=== PATIENT | female | born 1955 | race Caucasian/White ===

== ENCOUNTER 2020-10-26 11:33 | Outpatient (REF) | payer OTHER, SELFPAY ==
[2020-10-26 14:27] LABS: Basophils Percent Auto 0.6 % (0-2); Eosinophils Absolute Auto 0.2 X10*3/uL (0.0-0.4); Eosinophils Percent Auto 3.6 % (0-4); Hematocrit 45.3 % (37-47); Hemoglobin 15.1 g/dl (12.0-16.0); Imm Gran Abs Auto 0.01 X10*3/uL (0.00-0.03); Imm Gran Pct Auto 0.2 % (0.0-0.4); Lymphocytes Percent Auto 21.8 % (20-40); MANUAL DIFF FLAG SCAN; Mean Corpuscular HGB Conc 33.3 g/dl (31.0-35.0); Mean Corpuscular Hemoglobin 32.4 pg (27.0-33.0); Mean Corpuscular Volume 97.2 fL (80-98); Mean Platelet Volume 10.6 fL (9.4-12.3); Monocytes Percent Auto 20.3 % (2-11); Neutrophils Absolute Auto 2.5 X10*3/uL (2.0-8.3); Neutrophils Percent Auto 53.5 % (45-73); Platelet Count 229 X10*3/uL (160-400); Red Blood Count 4.66 X10*6/uL (4.20-5.50); Red Cell Distribution Width 11.4 % (11.0-16.0); SCAN SMEAR FLAG 1; White Blood Count 4.7 X10*3/uL (4.8-10.8)
[2020-10-26 14:57] LABS: SLIDE REVIEW VERIFIED
[2020-10-26 14:59] LABS: Cholesterol 233 mg/dL; HDL Cholesterol 104 mg/dL; LDL Cholesterol Calculated 114 mg/dl; Triglycerides 76 mg/dL
[2020-10-26 15:04] LABS: Vitamin D 25-OH Total 36.2 ng/mL (>30)
== END 2020-10-26 11:34 | disposition home or self-care (01) ==
LOC: HO.10HDL 11:33
PROVIDERS: Visit Provider Internal Medicine Medical Oncology
DX: R63.6 Underweight (principal)
CPT/HCPCS: 36415; 80061; 82306; 85025

== ENCOUNTER 2021-07-13 10:49 | Outpatient (REF) | payer OTHER, SELFPAY ==
[2021-07-13 13:27] LABS: MANUAL DIFF FLAG NO
[2021-07-13 13:34] LABS: Basophils Percent Auto 0.8 % (0-2); Eosinophils Absolute Auto 0.1 X10*3/uL (0.0-0.4); Eosinophils Percent Auto 2.7 % (0-4); Imm Gran Abs Auto 0.01 X10*3/uL (0.00-0.03); Imm Gran Pct Auto 0.2 % (0.0-0.4); Lymphocytes Absolute Auto 1.1 X10*3/uL (1.2-4.9); Lymphocytes Percent Auto 21.6 % (20-40); Mean Corpuscular HGB Conc 33.3 g/dl (31.0-35.0); Mean Corpuscular Hemoglobin 32.3 pg (27.0-33.0); Mean Platelet Volume 10.8 fL (9.4-12.3); Monocytes Percent Auto 19.6 % (2-11); Neutrophils Absolute Auto 2.7 X10*3/uL (2.0-8.3); Neutrophils Percent Auto 55.1 % (45-73); Platelet Count 272 X10*3/uL (160-400); Red Blood Count 4.64 X10*6/uL (4.20-5.50); Red Cell Distribution Width 11.7 % (11.0-16.0); White Blood Count 4.9 X10*3/uL (4.8-10.8)
[2021-07-13 14:57] LABS: Alanine Aminotransferase 36 U/L (0-31); Albumin Level 4.2 g/dL (3.5-5.0); Alkaline Phosphatase 93 U/L (39-117); Anion Gap 15 (12-20); Aspartate Amino Transferase 37 U/L (5-31); Bilirubin Total 0.7 mg/dL (0.0-1.0); Blood Urea Nitrogen 8 mg/dL (9-16); Calcium 9.5 mg/dL (8.4-10.2); Carbon Dioxide 22 mmol/L (22-29); Chloride 102 mmol/L (96-108); Cholesterol 224 mg/dL; Estimated Glomerular Filt Rate > 60; Glucose Fasting 124 mg/dL (60-99); HDL Cholesterol 112 mg/dL; LDL Cholesterol Calculated 99 mg/dl; Potassium 4.3 mmol/L (3.3-5.1); Sodium 135 mmol/L (135-145); Total Protein 7.2 g/dL (6.5-8.0); Triglycerides 65 mg/dL
== END 2021-07-13 10:50 | disposition home or self-care (01) ==
LOC: HO.10HDL 10:49
PROVIDERS: Visit Provider Internal Medicine Medical Oncology
DX: E66.3 Overweight (principal)
CPT/HCPCS: 36415; 80053; 80061; 85025

== ENCOUNTER 2021-09-27 13:19 | Outpatient (REF) | payer OTHER, SELFPAY ==
--- NOTE | ~2021-09-27 | XR_ITS ---
EXAMINATION: XR CHEST CLINICAL INFORMATION: Cough, chest pain. COMPARISON 03/14/2013 TECHNIQUE: 2 views of the chest were obtained. FINDINGS: There is no acute finding. No infiltrate is seen. There is no effusion. Probable mild apical scarring. The cardiac silhouette is felt to be within normal limits. There is no effusion. Mild degeneration in the thoracic spine. No acute compression injury. The hilar regions are felt to be comparable to previous. No convincing evidence for increase. XR/XR chest 2V IMPRESSION: No convincing evidence for an acute process.
== END 2021-09-27 13:20 | disposition home or self-care (01) ==
LOC: HO.XRAY 13:19
PROVIDERS: PCP Internal Medicine Medical Oncology; Visit Provider Internal Medicine Medical Oncology
DX: R05.9 Cough, unspecified (principal); R07.9 Chest pain, unspecified; J44.9 Chronic obstructive pulmonary disease, unspecified
CPT/HCPCS: 71046

== ENCOUNTER 2022-08-01 11:26 | Outpatient (REF) | payer OTHER, SELFPAY ==
--- NOTE | ~2022-08-01 | XR_ITS ---
EXAMINATION: XR HIP, RIGHT CLINICAL INFORMATION: Primary osteoarthritis. COMPARISON: None TECHNIQUE: Two views of the right hip. FINDINGS: There is mild loss of right hip joint space with periarticular spurring. Mild irregularity seen along articulating surface of superior femoral head with subchondral hypodensity. No acute fracture, dislocation or subluxation seen. There is diffuse osteopenia. XR/XR hip RT min 2V IMPRESSION: Mild degenerative arthritic changes right hip joint. Irregular articular surface superior femoral head with mild subchondral lucencies question severe osteopenia versus underlying AVN. Recommend MRI correlation
[2022-08-01 12:38] LABS: Basophils Absolute Auto 0.1 X10*3/uL (0.0-0.2); Eosinophils Absolute Auto 0.1 X10*3/uL (0.0-0.4); Eosinophils Percent Auto 2.6 % (0-4); Hematocrit 40.1 % (37.0-47.0); Hemoglobin 13.5 g/dl (12.0-16.0); Imm Gran Abs Auto 0.02 X10*3/uL (0.00-0.03); Imm Gran Pct Auto 0.4 % (0.0-0.4); Lymphocytes Absolute Auto 1.2 X10*3/uL (1.2-4.9); Lymphocytes Percent Auto 24.6 % (20-40); MANUAL DIFF FLAG SCAN; Mean Corpuscular HGB Conc 33.7 g/dl (31.0-35.0); Mean Corpuscular Hemoglobin 32.3 pg (27.0-33.0); Mean Corpuscular Volume 95.9 fL (80.0-98.0); Monocytes Absolute Auto 1.1 X10*3/uL (0.1-1.2); Monocytes Percent Auto 21.4 % (2-11); Neutrophils Absolute Auto 2.5 x10*3/uL (2.0-8.3); Platelet Count 214 X10*3/uL (160-400); Red Blood Count 4.18 X10*6/uL (4.20-5.50); Red Cell Distribution Width 11.7 % (11.0-16.0); SCAN SMEAR FLAG 1
[2022-08-01 13:01] LABS: SLIDE REVIEW VERIFIED
[2022-08-01 13:16] LABS: Alanine Aminotransferase 26 U/L (0-31); Alkaline Phosphatase 75 U/L (39-117); Anion Gap 15 (12-20); Aspartate Amino Transferase 23 U/L (5-31); Bilirubin Total 0.5 mg/dL (0.0-1.0); Blood Urea Nitrogen 9 mg/dL (9-16); Calcium 8.8 mg/dL (8.4-10.2); Carbon Dioxide 24 mmol/L (22-29); Chloride 101 mmol/L (96-108); Cholesterol 247 mg/dL; Estimated Glomerular Filt Rate > 60; Glucose Fasting 98 mg/dL (60-99); HDL Cholesterol 104 mg/dL; LDL Cholesterol Calculated 129 mg/dl; Potassium 4.6 mmol/L (3.3-5.1); Sodium 135 mmol/L (135-145); Total Protein 6.6 g/dL (6.5-8.0); Triglycerides 71 mg/dL
== END 2022-08-01 11:27 | disposition home or self-care (01) ==
LOC: HO.LAB 11:26
PROVIDERS: PCP Internal Medicine Medical Oncology; Visit Provider Internal Medicine Medical Oncology
DX: M25.551 Pain in right hip (principal); J20.9 Acute bronchitis, unspecified; M15.0 Primary generalized (osteo)arthritis; J44.9 Chronic obstructive pulmonary disease, unspecified; R63.6 Underweight
CPT/HCPCS: 36415; 73502; 80053; 80061; 85025

== ENCOUNTER 2022-08-08 13:40 | Outpatient (REF) | payer OTHER, SELFPAY ==
--- NOTE | ~2022-08-08 | MM_ITS ---
EXAMINATION: MM SCREENING DIGITAL BREAST TOMOSYNTHESIS, BILATERAL CLINICAL INFORMATION: Screening. Asymptomatic. The lifetime risk of breast cancer based on the Tyrer-Cuzick Model is 4%. COMPARISON: Mammography: 10/07/2019; outside mammography 12/31/2012 ([facility]) TECHNIQUE: Digital breast tomosynthesis is performed in both the craniocaudal and mediolateral oblique views along with computer-aided detection (CAD). Synthesized 2D images are generated from the tomosynthesis. FINDINGS: There are scattered areas of fibroglandular density (ACR BI-RADS breast composition Category b). There are no significant masses, abnormal calcifications, or other abnormalities. Small smooth nodule central right breast on CC view is stable from prior studies. The axilla are unremarkable. There is a dermal lesion again noted overlying the posterior upper left breast. MM/MM tomosynthesis screening BI IMPRESSION: No mammographic evidence of malignancy. ASSESSMENT: BI-RADS 2: Benign RECOMMENDATION: Routine annual mammography screening. This patient's information was entered into a reminder system with a target due date for their next mammogram.
--- NOTE | ~2022-08-08 | MM_ITS ---
EXAMINATION: BONE DENSITOMETRY CLINICAL INDICATION: Menopause. COMPARISON: This is the patient's baseline examination. TECHNIQUE: Using a Sparrow DXA System (software version: 13.1) manufactured by [employer], dual-energy x-ray absorptiometry was performed of the lumbar spine and left hip. The images are of good technical quality. Summary results are attached. FINDINGS: AP SPINE L1-L4: BMD 0.935 g/cm2, Z-score 0.1, T-score -2.0, osteopenia. LEFT FEMUR, NECK: BMD 0.645 g/cm2, Z-score -0.9, T-score -2.8, osteoporosis. LEFT FEMUR, TOTAL: BMD 0.700 g/cm2, Z-score 0.7, T-score -2.4, osteopenia. IDENTIFIED RISK FACTORS: Menopause, history of fracture (adult), glucocorticoids (chronic). HISTORY OF FRACTURE: Spine, wrist. MEDICATIONS: Calcium, vitamin D. MM/XR DEXA axial skeleton IMPRESSION: 1. DIAGNOSIS: Osteoporosis based on the lowest T-score value of -2.8 in the femoral neck applying World Health Organization criteria. 2. 10-YEAR FRACTURE RISK PREDICTION, FRAX: Major osteoporotic fracture (clinical spine, forearm, hip or shoulder) 35.8%. Hip fracture 13.1%. 3. Treatment Recommendations: NOF guidelines recommend consideration for treatment in postmenopausal women and men age 50 and older presenting with the following: -A hip or vertebral (clinical or morphometric) fracture. -T-score less than or equal to -2.5 at the femoral neck or spine after appropriate evaluation to exclude secondary causes. -Low bone mass at the hip or spine and a 10-year fracture probability by FRAX of greater than or equal to 3% for hip fracture or greater than or equal to 20% for major osteoporotic fracture based on the [place] adapted WHO algorithm. 4. Other Recommendations: All treatment decisions require clinical judgment and consideration of individual patient factors, including patient preferences, comorbidities, previous drug use, risk factors not captured in the FRAX model (e.g. frailty, falls, vitamin D deficiency, increased bone turnover, interval significant decline in bone density) and possible under or overestimation of fracture risk by FRAX. Additional medical evaluation for secondary cause of low bone mineral density may be appropriate. FUTURE SCAN RECOMMENDATION: People with diagnosed cases of osteoporosis or at high risk for fracture should have regular bone mineral density tests. For patients eligible for Medicare, routine testing is allowed once every 2 years. The testing frequency can be increased to one year for patients who have rapidly progressing disease, those who are receiving or discontinuing medical therapy to restore bone mass, or have additional risk factors.
== END 2022-08-08 13:41 | disposition home or self-care (01) ==
LOC: HO.MAMMO 13:40
PROVIDERS: PCP Internal Medicine Medical Oncology; Visit Provider Internal Medicine Medical Oncology
DX: Z12.31 Encounter for screening mammogram for malignant neoplasm of breast (principal); Z13.820 Encounter for screening for osteoporosis; M81.0 Age-related osteoporosis without current pathological fracture; M15.0 Primary generalized (osteo)arthritis; R63.6 Underweight; Z78.0 Asymptomatic menopausal state
CPT/HCPCS: 77063; 77067; 77080

== ENCOUNTER 2022-08-13 12:35 | Outpatient (REF) | payer OTHER, SELFPAY ==
--- NOTE | ~2022-08-13 | XR_ITS ---
EXAMINATION: XR PELVIS CLINICAL INFORMATION: Right hip pain COMPARISON: 08/01/2022 TECHNIQUE: AP view of the pelvis. FINDINGS: Again demonstrated is a large subchondral cyst of the right femoral head with flattening of the overlying cortex, possibly due to chronic AVN with subchondral collapse. There is joint space narrowing, small marginal osteophytes and mild sclerosis. Relatively mild osteoarthritis of the left hip joint. Diffuse vascular calcifications. XR/XR pelvis 1-2V IMPRESSION: Right femoral head cyst and overlying surface flattening likely the sequela of chronic AVN with subchondral collapse, and secondary osteoarthritis. No significant change. Mild left hip osteoarthritis.
== END 2022-08-13 12:36 | disposition home or self-care (01) ==
LOC: HO.HOSX 12:35
PROVIDERS: Visit Provider Orthopaedic Surgery
DX: M25.551 Pain in right hip (principal); M25.552 Pain in left hip
CPT/HCPCS: 72170

== ENCOUNTER 2022-09-17 14:38 | Outpatient (REF) | payer OTHER, SELFPAY ==
--- NOTE | ~2022-09-17 | XR_ITS ---
EXAMINATION: XR LUMBOSACRAL SPINE WITH OBLIQUES CLINICAL INFORMATION: Pain. COMPARISON: None TECHNIQUE: AP, both oblique, and lateral views of the lumbar spine. Lateral view of the lumbosacral junction. FINDINGS: Age indeterminate compression deformities at L1, L2 and L4. Decreased bone mineralization. Mild disc space narrowing at L1-L2, L4-L5 and L5-S1. Prominent facet arthropathy at L4-S1 with associated neural foraminal encroachment or central canal narrowing. Symmetric SI joints. Partially imaged sclerosis of the right femoral head. Nonspecific hyperdensities overlying the left renal fossa. Extensive atherosclerotic disease of the abdominal aorta. XR/XR lumbar spine 4V min IMPRESSION: 1. Age indeterminate compression deformities at L1, L2 and L4. Recommend correlation with point tenderness and if indicated further evaluation with a CT or MR of the lumbar spine. 2. Partially imaged sclerosis of the right femoral head which could be associated with avascular necrosis, although remains incompletely characterized in this examination. Recommend clinical correlation and if indicated further evaluation with a MRI of the right hip with and without intravenous contrast. 3. Nonspecific hyperdensities overlying the left renal fossa, possibly renal calculi. If indicated, a renal ultrasound could be performed. The report will be called to the ordering clinician by a [facility] Phys[facility] Apprise Counselor.
== END 2022-09-17 14:39 | disposition home or self-care (01) ==
LOC: HO.XRAY 14:38
PROVIDERS: PCP Internal Medicine Medical Oncology; Visit Provider Internal Medicine Medical Oncology
DX: M54.50 Low back pain, unspecified (principal)
CPT/HCPCS: 72110

== ENCOUNTER → 2023-01-30 11:25 | Outpatient (BNVA) | payer OTHER, SELFPAY | PROVIDERS: PCP Internal Medicine Medical Oncology; Visit Provider Advanced Practice Midwife | DX: Z13.89 Encounter for screening for other disorder (principal) ==

== ENCOUNTER 2023-08-27 12:35 | Emergency (ER) | payer OTHER, SELFPAY ==
--- NOTE | ~2023-08-27 | XR_ITS ---
EXAMINATION: XR LUMBOSACRAL SPINE CLINICAL INFORMATION: Back pain COMPARISON: 09/17/2022 TECHNIQUE: Three views of the lumbosacral spine. FINDINGS: There is straightening of normal lordosis. 5 lumbar type vertebral bodies are identified. Interval mild T11 compression deformity. Stable mild to moderate T12 and moderate superior endplate compression of L1. Unchanged mild L4 superior endplate compression deformity. L4-L5 disc space narrowing again seen. Pedicles and SI joints within normal limits. Bilateral mild hip joint narrowings. Right femoral head sclerotic changes suggestive of avascular necrosis seen on previous study not included on today's examination. Dense vascular calcifications nonaneurysmal aorta. XR/XR lumbar spine 2-3V IMPRESSION: Interval mild compression deformity T11. Stable T12, L1 and L4 compression deformities and L4-L5 disc space narrowing.
--- NOTE | 2023-08-27 12:41 | ED_ITS ---
HPI - General Adult General Chief complaint: Back Pain/Injury Stated complaint: Lower back pain Time Seen by Provider: 08/27/23 14:21 Source: patient Mode of arrival: ambulatory Limitations: no limitations History of Present Illness HPI narrative: 68 year old female with pmhx significant for COPD, osteoarthritis, AVN of right femur head, and eczema presents to the ED today from home with atraumatic lower back pain beginning just PIN PUSHER. Patient states she was trimming hedges earlier this morning when she had sudden onset low back pain after bending over and standing back up. Pain is localized to the diffuse lower back without radiation. Denies FRANCIS, dizziness, fever, chills, neck pain, chest pain, SOB, saddle paresthesias, bowel or bladder incontinence or retention. Related Data Home Medications Medication Instructions Recorded Confirmed albuterol sulfate 2 mg tablet 2 mg PO TID 09/28/20 albuterol sulfate 90 mcg/actuation 0 mcg inhalation 01/30/23 aerosol inhaler betamethasone, augmented 0.05 % topical BID 01/30/23 topical ointment prednisone 20 mg tablet 20 mg PO DAILY 01/30/23 Previous Rx's Medication Instructions Recorded cyclobenzaprine 5 mg tablet 5 mg PO BEDTIME PRN muscle spasm 08/27/23 #7 tabs hydrocodone 5 mg-acetaminophen 300 1 tab PO Q8H PRN pain (scale score 08/27/23 mg tablet 7-10) #14 tabs lidocaine 5 % topical patch 1 patch topical DAILY #15 ea 08/27/23 (Lidoderm) Allergies Allergy/AdvReac Type Severity Reaction Status Date / Time acetaminophen [From Percocet] Allergy Mild VOMITING Verified 08/27/23 12:44 indomethacin [From Indocin] Allergy Mild PRESSURE Verified 08/27/23 12:44 IN HEAD/VOMITING oxycodone [From Percocet] Allergy Mild VOMITING Verified 08/27/23 12:44 propoxyphene [From Darvon] Allergy Mild VOMITING Verified 08/27/23 12:44 meperidine [Demerol] Allergy Unknown Unknown Verified 08/27/23 12:44 Review of Systems Review of Systems: Constitutional: No fever, chills, fatigue, night sweats, weight changes ENT/Mouth: No ear pain, hearing loss, nasal congestion, sinus pain, rhinorrhea, sore throat Eyes: No eye pain, swelling, redness, vision changes, discharge Cardio: No chest pain, palpitations, [place], orthopnea, peripheral edema Pulm: No SOB, cough, sputum, wheezing, dyspnea, hemoptysis GI: No nausea, vomiting, hematemesis, abdominal pain, diarrhea, constipation, hematochezia, melena : No irregular bleeding, dysuria, frequency, urgency, hesitancy, hematuria, flank pain, urinary flow changes, urinary incontinence or retention MSK: + back pain, No neck pain, joint pain, myalgias Skin: No lesions, rashes Neuro: No weakness, numbness, paresthesias, LOC, dizziness, headache All other systems reviewed and are negative. [facility] Past Medical History Attestation statement: The following information was validated with the patient. Source: old records reviewed and nursing notes reviewed Medical History Arthritis Eczema COPD (chronic obstructive pulmonary disease) Avascular necrosis of femur head, right Surgical History History of hip surgery Family History Family History Brother Prostate CA Father Prostate CA Mother Diabetes Social History Social History Alcohol intake: current Alcohol intake frequency: a few times a week Patient Tobacco Use Status: Current everyday Tobacco user Cigarettes Per Day: 4 Advance Directives: Yes Advance Directives Information Provided: No Advance Directives on File: No Current occupational status: employed 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 Const Other: In obvious discomfort lying on the bed. General: cooperative, healthy appearing, no acute distress, alert and awake Orientation/consciousness: patient oriented x3 Limitations: ambulation with cane (baseline) HENMT Head: Yes normal to inspection, Yes No palpable skull fracture present, Yes normocephalic, Yes atraumatic, No Montanez's sign and No raccoon eyes Ears: hearing grossly normal bilaterally General nose exam: Normal external nose present Eyes General: appearance normal, both eyes and all related structures Conjunctivae: conjunctivae normal Sclerae: sclerae normal Corneas: corneas normal Pupils: Equal, round and reactive pupils present EOM: EOMs intact bilaterally Neck Neck: Yes normal visual inspection and Yes no meningeal signs Chest Chest palpation & inspection: normal inspection of the chest and normal palpation of entire chest wall Resp Effort & Inspection: normal respiratory effort and able to speak in complete sentences Auscultation: clear to auscultation bilaterally Cardio Rate: regular rate Rhythm: regular rhythm Heart sounds: S1 normal heart sound present and S2 normal heart sound present Peripheral pulses: Peripheral pulses 2+ throughout GI Inspection: Yes normal to inspection Palpation (GI): Soft to palpation, nontender, no guarding and hepatosplenomegaly present Back/Spine/Pelvis Other: No overlying ecchymosis or edema. Cervical and thoracic spine without midline spinous tenderness. + midline spinous and paraspinal muscle tenderness without step off or deformity. Pelvis stable. Skin General skin exam: no rashes or lesions noted Neuro Other: Strength 5/5 intact throughout.? No saddle anesthesia.? Sensation intact to light touch.? Neurovascular intact distally.? General: patient oriented x3, gait normal, moves all extremities, no meningeal signs and deep tendon reflexes 2+ bilaterally Cranial nerves: Yes CN's II-XII intact bilaterally and Yes Equal, round and reactive pupils present Coordination: [id number] test normal and [id number] test normal Extrem General: Yes normal to inspection and Yes full ROM Course Course Course Narrative: This is an RME: Additional HPI, ROS, PE not included below will be deferred to primary provider. 68 y o female PMH OA R hip, COPD presenting for evaluation of low back pain x2 days. Atraumatic, states she was bending over to trim the hed ges and heard a crack , pain since. No loss of bowel or bladder continence, no numbness or tingling Plan -- XR, EMC Reevaluation(s) Reevaluation #1: 1522-- xray lumbar spine showing a new compression fracture of T11 with stable old T12, L1 and L4 compression fractures. > discussed results with patient. Awaiting pain control administration. 1615-- Patient's pain has improved with toradol, lidoderm patch, and flexeril. She is able to stand up and ambulate with cane, which is her baseline. Patient is stating that she would like to go home. Will send patient home with vicodin prescription for pain as patient has various medication allergies and tells me this has worked for her in the past. Will also provide her with a neurospine referral for further evaluation. Discussed worrisome signs and symptoms and strict return precautions. All questions answered at this time. Patient is agreeable with disposition and stable for discharge. Medications Administered Discontinued Medications Generic Name Dose Route Start Last Admin Trade Name Freq PRN Reason Stop Dose Admin Cyclobenzaprine HCl 10 mg 08/27/23 14:34 08/27/23 15:43 Cyclobenzaprine Hcl 10 Mg Tablet PO 08/27/23 14:35 10 mg ONCE ONE Administration Ketorolac Tromethamine 30 mg 08/27/23 14:34 08/27/23 15:43 Ketorolac Tromethamine 30 Mg/Ml Vial IM 08/27/23 14:35 30 mg ONCE ONE Administration Lidocaine 1 patch 08/27/23 14:34 08/27/23 15:44 Lidocaine 4 % Patch Adh..Patch TRANSDERMA 08/27/23 14:35 1 patch ONCE ONE Administration Protocol Medical Decision Making Medical Decision Making MDM Narrative: 68 year old female with pmhx significant for COPD, osteoarthritis, AVN of right femur head, and eczema presents to the ED today from home with atraumatic lower back pain beginning just PIN PUSHER. VSS. Afebrile. No overlying ecchymosis or edema. RRR. Cervical and thoracic spine without midline spinous tenderness. + midline spinous and paraspinal muscle tenderness without step off or deformity. Pelvis stable. Strength 5/5 intact throughout.? No saddle anesthesia.? Sensation intact to light touch.? Neurovascular intact distally.?Exam nonfocal. Clinical concern for msk sprain/ strain, fracture, sciatica, and disc herniation. Unlikely cauda equina, cord compression, or epidural abscess. Differential Diagnosis Differential Diagnoses: The differential diagnosis associated with the presentation includes (as above.) Admission/Observation Consideration of admission/observation: Escalation of care including admission/observation considered Lab Data Not indicated. Independent Interpretation I performed an independent interpretation of an: Plain X-Ray (Lumbar xray with T11 compression, agree with radiologist's interpretation.) Radiology Impression Discussion of test interpretation with radiology: I have reviewed the radiologist's reading. (XR lumbar spine 2-3V IMPRESSION: Interval mild compression deformity T11. Stable T12, L1 and L4 compression deformities and L4- L5 disc space narrowing.) Independent Historian Clinical information obtained from an independent historian. History obtained from or confirmed by: Spouse () External Record Review External record reviewed: Inpatient record, Office record, Outpatient record, Prior outpatient labs, Prior outpatient radiology and Primary care record Prescription Management I considered prescription management with: Pain Medication Chronic Conditions Patient?s care impacted by: Other (osteoarthritis) Critical Care Time Critical Care Time Critical Care Time: No Discharge Plan Discharge Clinical Impression: T11 vertebral fracture Patient Disposition: Home, Self-Care Instructions: Vertebral Compression Fracture (ED) Additional Instructions: The x-rays of your lumbar spine show new T11 compression fracture. Avoid bending, twisting, lifting. You can apply ice and head to the area as needed. Vicodin has been sent to your pharmacy. Take this as needed for pain control. You may use your home back brace as needed to provide stability and comfort. You have been provided with a referral to a spine surgeon. Call them to make an appointment, they will not call you. Please follow-up with your primary care physician as needed. If you develop new or worsening symptoms such groin numbness or bowel/bladder incontinence or retention please return to the emergency department. In the case of emergency call 911. Prescriptions: New hydrocodone-acetaminophen 5-300 mg tablet 1 tab PO Q8H PRN (Reason: pain (scale score 7-10)) Qty: 14 0RF Rx Instructions: Partial Fill upon patient request. lidocaine [Lidoderm] 5 % adhesive patch,medicated 1 patch topical DAILY Qty: 15 0RF Rx Instructions: leave on most painful area for up to 12 hrs cyclobenzaprine 5 mg tablet 5 mg PO BEDTIME PRN (Reason: muscle spasm) Qty: 7 0RF No Action prednisone 20 mg tablet 20 mg PO DAILY albuterol sulfate 90 mcg/actuation HFA aerosol inhaler 0 mcg inhalation betamethasone, augmented 0.05 % ointment topical BID Referrals: Nacho Combs MD, PhD [Physician] - 5 days Interventions: ED Discharge Assessment Last Done: 08/27/23 16:38 Discharge Date/Time: 08/27/23 16:38
[2023-08-27 12:44] VITALS: BP 163/71; PULSE 100; RESP 22; TEMP 36.7; O2SAT 96; BMI 21.5
[2023-08-27] MEDS: Cyclobenzaprine HCl 10 MG TABLET PO (15:43)
[2023-08-27] MEDS: Ketorolac Tromethamine 30 MG/ML VIAL IM (15:43)
[2023-08-27] MEDS: Lidocaine 4 % Patch ADH..PATCH 1 PATCH TRANSDERMA (15:44)
== END 2023-08-27 16:38 | disposition home or self-care (01) ==
PROVIDERS: Emergency Provider Emergency Medicine; PCP Internal Medicine Medical Oncology
DX: S22.080A Wedge compression fracture of T11-T12 vertebra, initial encounter for closed fracture (principal); X50.1XXA Overexertion from prolonged static or awkward postures, initial encounter; M54.50 Low back pain, unspecified; Y93.H2 Activity, gardening and landscaping; Y92.017 Garden or yard in single-family (private) house as the place of occurrence of the external cause; Y99.9 Unspecified external cause status
CPT/HCPCS: 72100; 96372; 99283; 99284; J1885

== ENCOUNTER 2023-09-13 10:26 | Outpatient (REF) | payer OTHER, SELFPAY ==
--- NOTE | ~2023-09-13 | MR_ITS ---
EXAMINATION: MR THORACIC SPINE WITHOUT CONTRAST CLINICAL INFORMATION: Thoracic compression fracture. COMPARISON: Lumbar spine radiographs 09/17/2023. TECHNIQUE: MRI of the thoracic spine was obtained using routine sequences without contrast. FINDINGS: Compression deformities of the T12-L2 vertebral bodies: -There is 30% loss of T12 vertebral body height with residual marrow edema throughout the vertebral body extending into the posterior elements. There is 0.2 cm retropulsion of the superior posterior body wall of the T12. -There is 40% loss of L1 and L2 vertebral heights without residual marrow edema. Chronic 0.6 cm retropulsion of the superior posterior body wall of the L2. -Partially visualized chronic loss of L4 vertebral body height. There is mild left convex curvature of the upper thoracic spine. There is minimal right convex curvature of the proximal lumbar junction. Otherwise, normal anatomic alignment. No mild multilevel degenerative disc disease is throughout the thoracic spine. Lipid rich hemangiomas within the T6 and T7 vertebral bodies. No additional suspicious marrow edema. The vertebral body heights are well-maintained. No demonstrated spinal cord signal abnormality. The conus medullaris terminates at the level of L1-L2. Mild paravertebral edema at this level of T12. No additional significant abnormalities of the paraspinal musculature. Limited evaluation of the intrathoracic structures without significant abnormalities. The descending thoracic aorta is of normal contour and caliber. AXIAL SPINAL LEVELS: Normal annular contour. There is mild multilevel facet joint arthropathy. There are mild neural foraminal stenoses at L1-L2. No additional neural foraminal stenoses. There is mild spinal canal stenosis at L1-L2. There is no additional spinal canal stenosis. MR/MR thoracic spine wo con IMPRESSION: Multilevel compression deformities of the T12-L2 vertebral bodies. Most notably, there is 30% loss of T12 vertebral body height with residual marrow edema. There is 0.2 cm retropulsion of the posterior body wall of the T12 without overt spinal canal stenosis. No residual marrow edema associated with the compression deformities of L1 and L2. There is mild spinal canal stenosis at L1-L2. No additional spinal canal stenosis or nerve root compression.
== END 2023-09-13 10:27 | disposition home or self-care (01) ==
LOC: HO.MRI 10:26
PROVIDERS: PCP Internal Medicine Medical Oncology; Visit Provider Internal Medicine Medical Oncology
DX: S32.050A Wedge compression fracture of fifth lumbar vertebra, initial encounter for closed fracture (principal); S22.000A Wedge compression fracture of unspecified thoracic vertebra, initial encounter for closed fracture
CPT/HCPCS: 72146

== ENCOUNTER 2023-09-27 13:57 | Outpatient (AMB) | payer OTHER, SELFPAY ==
--- NOTE | 2023-09-27 14:18 | HO.SPINEOV ---
Intake Intake Visit Reasons: compression fracture of thoracic vertebra Intake Note: Mrs. Lyle is here today c/o low back pain. MRI done @ [facility]. Forensic Anthropologist Required: No Allergies acetaminophen [From Percocet] Allergy (Mild, Verified 08/27/23 12:44) VOMITING indomethacin [From Indocin] Allergy (Mild, Verified 08/27/23 12:44) PRESSURE IN HEAD/VOMITING oxycodone [From Percocet] Allergy (Mild, Verified 08/27/23 12:44) VOMITING propoxyphene [From Darvon] Allergy (Mild, Verified 08/27/23 12:44) VOMITING meperidine [Demerol] Allergy (Unknown, Verified 08/27/23 12:44) Unknown Assessment & Plan Assessment & Plan (1) Compression fracture of body of thoracic vertebra: Code(s): S22.000A - Wedge compression fracture of unspecified thoracic vertebra, initial encounter for closed fracture Plan Dear colleague, Thank you for referring Michelle to our office today. Michelle is a 68-year-old female who comes in with a CC of midback pain. She states that her pain began on August 25 of this year. She states the inciting incident was when she was in her garden leaning over to clip some hedges. She states that upon leaning over she felt/herd a crack in her midback and has had pain ever since. She was seen in the emergency department here at [facility] and discharged home with a referral to our service. She does report some relief of her pain with [id number] pain medications, and states that it slowly has got better since the incident. She reports a prior history of two lumbar spine compression fractures which she allowed to heal with a back brace & no other interventions. She states that lying down and bending forward aggravates her pain. Of note she does have a history of osteoporosis and states that she had a bone DEXA scan performed 2 years ago by her primary care physician who is aware of her osteoporosis. She states her primary care physician did start her on medication for her osteoporosis, but she had has not taken it as she did not like the reported side effects. PMH: Asthma, osteoporosis. Hx two previous compression fractures of the lumbar spine. Social hx: Patient does not smoke, reports no substance use. Medications: Albuterol, betamethasone, cyclobenzaprine, hydrocodone, lidocaine, prednisone. Allergies: NKDA. Physical exam: Michelle has 5/5 strength of her upper and lower extremities. No neurological deficits. Sensation grossly intact. Patient is able to ambulate well, rises from a seated position without difficulty. Some tenderness to direct palpation of the lower thoracic spine. (-) Paz's, (-) clonus. Imaging review: MRI of the thoracic spine shows new moderate T12 compression fracture with maintained disc height. No significant central canal stenosis or foraminal stenosis noted. STIR segment shows significant inflammation at this level. Old L1/L2 compression fractures noted as well Impression: Michelle is a 68-year-old female who comes in today as a referral from the emergency department after being seen last month for a compression fracture that happened acutely when working in her yard. She states that she was attempting to trim her hedges and was bent over using a pair of hedge trimmers when she felt a crack in her back which has caused her pain for the last month. She states the pain is gradually beginning to improve, and states that she has been utilizing a back brace that she obtained from her prior compression fractures in the lumbar spine, which provides her with modest relief. We discussed the potential for referral to pain management here at [facility] for possible kyphoplasty, but she stated she would rather attempt to wait it out and see if her symptoms improve. She was educated on the time frame surrounding kyphoplasty interventions efficacy. She would still prefer to seek holistic methods of treatment. I also extensively discussed her osteoporosis and recurrent compression fractures and strongly advised her to return to her primary care physician do discuss treatment options. Thank you for allowing us to care for your patient. The total time spent with this visit with this patient was 60 minutes reviewing history, physical exam, X-ray / MRI imaging review, and implementation of treatment plan or further diagnostic testing. Brennen Combs MD,PhD [facility] Coding Level of Care Code New Pt Level 5 (40969) Diagnoses Compression fracture of body of thoracic vertebra S22.000A
== END 2023-09-27 14:48 | disposition home or self-care (01) ==
PROVIDERS: PCP Internal Medicine Medical Oncology; Referring Provider Internal Medicine Medical Oncology; Visit Provider Physician Assistant
DX: S22.000A Wedge compression fracture of unspecified thoracic vertebra, initial encounter for closed fracture (principal)
CPT/HCPCS: 99205

== ENCOUNTER → 2023-09-27 13:57 | Outpatient (BNVA) | payer OTHER, SELFPAY | PROVIDERS: PCP Internal Medicine Medical Oncology; Visit Provider Physician Assistant ==

== ENCOUNTER 2023-10-30 13:46 | Outpatient (REF) | payer OTHER, SELFPAY | END 2023-10-30 13:47 | disposition home or self-care (01) | LOC: HO.MAMMO 13:46 | PROVIDERS: PCP Internal Medicine Medical Oncology; Visit Provider Internal Medicine Medical Oncology | DX: Z12.31 Encounter for screening mammogram for malignant neoplasm of breast (principal) | CPT/HCPCS: 77063; 77067 ==

== ENCOUNTER → 2023-10-30 14:00 | Outpatient (BNV) | payer OTHER, SELFPAY | PROVIDERS: PCP Internal Medicine Medical Oncology; Visit Provider Radiology Diagnostic Radiology | DX: Z12.31 Encounter for screening mammogram for malignant neoplasm of breast (principal) | CPT/HCPCS: 77063; 77067 ==

== ENCOUNTER 2023-11-01 11:08 | Outpatient (AMB) | payer OTHER, SELFPAY ==
--- NOTE | 2023-11-01 11:12 | MHC.OFFVIS ---
Intake Intake Visit Reasons: LDCT SD Allergies acetaminophen [From Percocet] Allergy (Mild, Verified 08/27/23 12:44) VOMITING indomethacin [From Indocin] Allergy (Mild, Verified 08/27/23 12:44) PRESSURE IN HEAD/VOMITING oxycodone [From Percocet] Allergy (Mild, Verified 08/27/23 12:44) VOMITING propoxyphene [From Darvon] Allergy (Mild, Verified 08/27/23 12:44) VOMITING meperidine [Demerol] Allergy (Unknown, Verified 08/27/23 12:44) Unknown HPI HPI Comments History of Present Illness Details Michelle is a pleasant 68 year old female, current 11/28 ppd smoker with a 38 + PYH. She has been working towards cutting down intake. Patient has been smoking since age 16 for 51 years at 0.5-1 ppd. Denies marijuana use. Denies exposure to chemicals or substances like asbestos. Reports second hand smoke exposure. Denies known family history of lung cancer. Denies personal history of cancers. Denies chest CT in last year. Denies recent travel outside the [place]. Admits testing positive for COVID. Admits receiving COVID Vaccine x 3. Denies fever, chills, chest pain, new cough, hemoptysis or unintentional weight loss. Lung Cancer Screening Questionnaire reviewed with patient by provider. Shared Decision Making Completed. Discussed in detail with patient, the risk versus benefit of LDCT screening. Patient in agreement of proceeding with scan. 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 This patient meets criteria for LDCT for lung cancer screening purposes and is asymptomatic. Offered smoking cessation. Patient has been scheduled for a low dose chest CT for screening purposes at [facility]. We discussed how the results will be obtained depending on CT findings. RADS 1 and RADS 2 will receive a letter with results and will follow up for annual LDCT. Patient informed they will be contacted at later date to schedule upcoming LDCT scan. RADS 3 and RADS 4 will receive a telephone call, or an office visit after reviewing case at our Lung Cancer Conference to determine when the next LDCT will be scheduled or further interventions that may be needed. Discussed importance of screening program and compliance with yearly LDCT scan as scheduled. Risks, benefits, and alternatives were discussed in detail and patient agrees to proceed. Risks discussed include but are not limited to: radiation exposure and possibility of additional intervention for benign disease. Benefits include detection of lung cancer at an early stage. A copy of today's visit and LDCT results will be sent to patient's PCP. Incidental findings on LDCT are PCP's responsibility. If there are incidental findings, our office will ensure that PCP office is aware of these findings. All questions were answered and patient is in agreement of plan. Coding Level of Care Code Lung Cancer Screening G0296 Diagnoses Nicotine dependence F17.200
== END 2023-11-01 11:24 | disposition home or self-care (01) ==
PROVIDERS: PCP Internal Medicine Medical Oncology; Visit Provider Nurse Practitioner Family
DX: F17.200 Nicotine dependence, unspecified, uncomplicated (principal)
CPT/HCPCS: G0296

== ENCOUNTER 2023-11-01 11:33 | Outpatient (REF) | payer OTHER, SELFPAY ==
--- NOTE | ~2023-11-01 | CT_ITS ---
EXAMINATION: CT CHEST LOW-DOSE SCREENING WITHOUT CONTRAST HISTORY: Asymptomatic patient meeting criteria for lung screening. PATIENT PACK-YEAR HISTORY: 50 Current Smoker: Yes If former smoker, years since quitting: COMPARISON: None available. TECHNIQUE: Multidetector volumetric non-contrast CT imaging of the chest was performed using low dose screening CT technique. Axial thin section 0.625 mm reformations in soft tissue and lung windows were obtained. Sagittal and coronal reformations were obtained. Axial MIP images were also created and reviewed. RECONSTRUCTED WIDTH: 1.25 mm x 1.25 mm TOTAL EXAM DLP: 32 mGy-cm CTDIvol: 0.69 L mGy FINDINGS: LUNGS: Mild centrilobular emphysema. 6 mm nodule left lower lobe on image 440. 4 mm nodule right lower lobe on image 256. 4 mm nodule right upper lobe on image 120. No focal consolidation. Central airways are patent. PLEURA: No pleural effusion. LYMPH NODES: No bulky mediastinal, hilar or axillary lymphadenopathy. MEDIASTINUM: Great vessels are of normal caliber. Heart size is normal. Trace pericardial effusion. CORONARY ARTERY CALCIFICATIONS: Marked. CHEST WALL/BREASTS: No acute abnormality. UPPER ABDOMEN: This study was performed without contrast and with lower than standard dose, reducing the sensitivity for detection of small lesions in the upper abdomen. OSSEOUS STRUCTURES: Compression fractures of T12, L1 and L2. CT/CT lung screening IMPRESSION: Bilateral pulmonary nodules measuring up to 6 mm. LUNG-RADS CATEGORY ASSESSMENT: 3. Probably benign. Probably benign findings, including nodules with a low likelihood of becoming a clinically active cancer. Recommend 6 month followup low-dose CT scan. Probability of malignancy 1 to 2%. INCIDENTAL FINDINGS (S CATEGORY): Finding: No incidental findings. Significance category: Normal or normal variant. RECOMMENDATION: Low dose lung CT. overall in 1 year. Visual estimate of coronary calcified plaque burden: Severe. However, this exam cannot replace a dedicated cardiac CT calcium score for accurate assessment. LUNG-RADS CATEGORY: 3 -- PROBABLY BENIGN
== END 2023-11-01 11:34 | disposition home or self-care (01) ==
LOC: HO.CT 11:33
PROVIDERS: PCP Internal Medicine Medical Oncology; Visit Provider Nurse Practitioner Family
DX: Z12.2 Encounter for screening for malignant neoplasm of respiratory organs (principal); F17.210 Nicotine dependence, cigarettes, uncomplicated
CPT/HCPCS: 71271; G0296

== ENCOUNTER 2023-11-19 14:23 | Outpatient (REF) | payer OTHER, SELFPAY ==
[2023-11-19 16:22] LABS: MANUAL DIFF FLAG NO
[2023-11-19 16:29] LABS: Basophils Percent Auto 0.8 % (0-2); Eosinophils Absolute Auto 0.1 X10*3/uL (0.0-0.4); Eosinophils Percent Auto 2.8 % (0-4); Hematocrit 43.1 % (37.0-47.0); Hemoglobin 14.3 g/dl (12.0-16.0); Imm Gran Abs Auto 0.01 X10*3/uL (0.00-0.03); Imm Gran Pct Auto 0.2 % (0.0-0.4); Lymphocytes Absolute Auto 1.4 X10*3/uL (1.2-4.9); Lymphocytes Percent Auto 27.5 % (20-40); Mean Corpuscular HGB Conc 33.2 g/dl (31.0-35.0); Mean Corpuscular Hemoglobin 31.3 pg (27.0-33.0); Mean Corpuscular Volume 94.3 fL (80.0-98.0); Mean Platelet Volume 10.8 fL (9.4-12.3); Monocytes Absolute Auto 0.9 X10*3/uL (0.1-1.2); Monocytes Percent Auto 18.3 % (2-11); Neutrophils Absolute Auto 2.5 x10*3/uL (2.0-8.3); Neutrophils Percent Auto 50.4 % (45-73); Platelet Count 245 X10*3/uL (160-400); Red Blood Count 4.57 X10*6/uL (4.20-5.50); Red Cell Distribution Width 12.2 % (11.0-16.0)
[2023-11-19 17:07] LABS: Erythrocyte Sedimentation Rate 25 MM/HR (0-20)
[2023-11-19 17:24] LABS: Alanine Aminotransferase 20 U/L (0-31); Albumin Level 4.2 g/dL (3.5-5.0); Alkaline Phosphatase 70 U/L (39-117); Anion Gap 14 (12-20); Aspartate Amino Transferase 25 U/L (5-31); Bilirubin Total 0.7 mg/dL (0.0-1.0); Blood Urea Nitrogen 9 mg/dL (9-16); Calcium 9.7 mg/dL (8.4-10.2); Carbon Dioxide 26 mmol/L (22-29); Chloride 102 mmol/L (96-108); Cholesterol 220 mg/dL (<200); Estimated Glomerular Filt Rate > 60; Glucose Fasting 77 mg/dL (60-99); HDL Cholesterol 92 mg/dL (>40); LDL Cholesterol Calculated 117 mg/dL (<100); Potassium 4.6 mmol/L (3.3-5.1); Sodium 137 mmol/L (135-145); Total Protein 7.3 g/dL (6.5-8.0); Triglycerides 57 mg/dL (<150)
== END 2023-11-19 14:24 | disposition home or self-care (01) ==
LOC: HO.HMGCLDS 14:23
PROVIDERS: PCP Internal Medicine Medical Oncology; Visit Provider Internal Medicine Medical Oncology
DX: J44.9 Chronic obstructive pulmonary disease, unspecified (principal); E78.5 Hyperlipidemia, unspecified
CPT/HCPCS: 36415; 80053; 80061; 85025; 85652

== ENCOUNTER 2024-02-10 15:20 | Outpatient (REF) | payer MEDICARE, SELFPAY ==
--- NOTE | ~2024-02-10 | CT_ITS ---
EXAMINATION: CT CHEST SCREENING CLINICAL INFORMATION: Nicotine dependence. Current smoker one pack per day x52 years. COMPARISON: CT lung screening 11/01/2023. TECHNIQUE: Multidetector volumetric CT imaging of the chest is performed without contrast using low dose technique. Additional 2D coronal and sagittal reformatted images and axial 3D maximum intensity projection (MIP) images are generated on the CT workstation. This CT examination was performed using dose optimization techniques as appropriate, variously including the following: *Automated exposure control *Adjustment of mA and/or kV according to patient size (this includes techniques or standardized protocols for targeted exams where dose is matched to indication/reason for exam; i.e. extremities or head) *Use of iterative reconstruction technique DLP: 33 mGy-cm FINDINGS: PULMONARY NODULES: Lung nodules are unchanged. A 6 mm left lower lobe ((5:442 compare prior 6:440) A 3 mm left lower lobe (5:356 compare prior 6:354) A 4 mm right lower lobe (5:266 compare prior 6:256) In the right upper lobe, there is a linear abnormality with thickening anteriorly. The thickened anterior component measures 6 x 4 mm (5:101) whereas previously this measured 4 x 3 mm (prior 6:110). No new pulmonary nodules are seen. LUNGS: Moderate emphysematous changes are present. There is a mild saber sheath trachea seen. Peribronchial thickening is noted. MEDIASTINUM: Heart size normal. Marked calcific atherosclerotic change present in the aorta and great vessels. Significant stenosis involving the origin of the left subclavian is suspected. CORONARY ARTERY CALCIFICATION: Severe PLEURA: There is no pleural effusion. No pleural mass or thickening. AXILLA: No lymphadenopathy. UPPER ABDOMEN: Unremarkable OSSEOUS STRUCTURES: Unremarkable. CT/CT lung screen follow up IMPRESSION: Growing right upper lobe nodule suspicious for malignancy. Other nodules are stable. ASSESSMENT: Lung-RADS category 4A: Suspicious RECOMMENDATION: Short interval 3 month follow up low dose CT chest.
== END 2024-02-10 15:21 | disposition home or self-care (01) ==
LOC: HO.CT 15:20
PROVIDERS: PCP Internal Medicine Medical Oncology; Visit Provider Nurse Practitioner Family
DX: R91.8 Other nonspecific abnormal finding of lung field (principal); F17.200 Nicotine dependence, unspecified, uncomplicated
CPT/HCPCS: 71250

== ENCOUNTER 2024-07-22 15:18 | Outpatient (REF) | payer MEDICARE, SELFPAY ==
--- NOTE | ~2024-07-22 | CT_ITS ---
EXAMINATION: CT LOW-DOSE SCREENING CHEST WITHOUT CONTRAST CLINICAL INFORMATION: Other nonspecific abnormal finding of lung field. The patient is a current smoker with a 50 pack-year history of smoking. COMPARISON: CT chest February 10, 2024: In the right upper lobe, there is a linear abnormality with thickening anteriorly. The thickened anterior component measures 6 x 4 mm (5:101) whereas previously this measured 4 x 3 mm (prior 6:110). As well as CT screening 11/01/2023 and x-ray chest March 14, 2013. TECHNIQUE: Multidetector volumetric CT imaging of the chest is performed on a Siemens SOMATOM Definition scanner without contrast using low dose technique. Additional 2D coronal and sagittal reformatted images and axial 3D maximum intensity projection (MIP) images are generated on the CT workstation. This CT examination was performed using dose optimization techniques as appropriate, variously including the following: *Automated exposure control. *Adjustment of mA and/or kV according to patient size (this includes techniques or standardized protocols for targeted exams where dose is matched to indication/reason for exam; i.e. extremities or head). *Use of iterative reconstruction technique. TOTAL EXAM DLP: 35 mGy-cm. CTDIvol: 0.98 mGy. FINDINGS: PULMONARY NODULES: There has been a continued increase in size in the right upper lobe nodule that now measures 10.5 x 6.4 mm (mean 8.5 mm) previously measuring 5.7 x 3.5 mm (mean 4.6 mm), (5:92 compare prior 5:101). This is in the transverse plane. In the cephalocaudad direction, this has increased in size more significantly, measuring 2.2 cm in the cephalocaudad dimension on today's exam whereas previously this measured at most 1.1 cm (see saved benson images). Other smaller pulmonary nodules are unchanged, the largest in the inferior-anterior left costophrenic sulcus measuring 6 mm (5:439 compare prior 5:442). LUNGS: Lungs bilaterally symmetrically expanded. There is mild emphysema and bronchial thickening. No effusion or pneumothorax. Central airways patent. MEDIASTINUM: No mediastinal, hilar or axillary adenopathy or free fluid collection. CORONARY ARTERY CALCIFICATION: Marked. THYROID GLAND: Unremarkable to the extent seen. CARDIOVASCULAR STRUCTURES: Aortic and heart size normal. Severe stenosis of the left subclavian artery origin. No pericardial effusion. CHEST WALL/AXILLA: Unremarkable. UPPER ABDOMEN: Included portions of the solid organs in the upper abdomen unremarkable on noncontrast imaging. OSSEOUS STRUCTURES: No suspicious focal findings. CT/CT lung screen follow up IMPRESSION: Unremarkable examination. ASSESSMENT: 1. Lung-RADS Category 4X: Suspicious. There is a nodule with additional features or imaging findings that increases the suspicion of malignancy. 2. Lung-RADS Category S: Negative. There are no clinically significant or potentially clinically significant findings not related to the lungs requiring urgent additional evaluation. RECOMMENDATION: Tissue sampling is recommended depending on the probability of malignancy and comorbidities. Electronically signed by: Deepak Mustafa MD 08/15/2024 02:58 PM EDT
== END 2024-07-22 15:19 | disposition home or self-care (01) ==
LOC: HO.CT 15:18
PROVIDERS: PCP Internal Medicine Medical Oncology; Visit Provider Nurse Practitioner Family
DX: R91.8 Other nonspecific abnormal finding of lung field (principal)
CPT/HCPCS: 71250

== ENCOUNTER 2024-12-07 15:20 | Outpatient (REF) | payer MEDICARE, SELFPAY ==
--- OUTSIDE RECORDS SUMMARY | 2024-12-07 19:16 | XMS_ITS ---
Author Organization Milo Burgos III, MD Address [address] [place] [address] [place] [address] Care Team Providers Care Painter Assistant Name Role Phone Milo Burgos Primary Care Provider [phone] REASON FOR VISIT Message Social History Sex Assigned At : Social History Observation Description Sex Assigned At Female Encounters Encounter Location Date Provider Diagnosis Milo Burgos III, MD [address] [place] [address] [place] [id number] 11/12/2024 Milo Burgos Plan Of Treatment Next Appt Details Provider Name:Milo Burgos, 03/22/2025 03:00:00 PM, [address] [place] [address] [place], [address], Progress Notes * Michelle AGARWALDOB:1955 (69 yo F)Acc No.[id number]:11/12/2024 Patient:?Michelle AGARWAL :1955???Age:69 Y???Sex:Female Address:[address] [place], [address] * true * Date:? Generated for Printi meliton/Faotiliag/eTransmitting on:?12/07/2024 05:42 PM EST
--- OUTSIDE RECORDS SUMMARY | 2024-12-07 19:16 | XMS_ITS | Patient Health Record ---
Author Organization Milo Burgos III, MD Address [address] [place] [address] DR GOMEZ Melita REAGAN [place] [address] Care Team Providers Care Overlock Operator Name Role Phone Milo Burgos Primary Care Provider [phone] Allergies Allergen (clinical drug ingredient) Drug/Non Drug Allergy documented on EMR Reaction Allergy Type Onset Date Status Dust Mites Unknown Allergy Active acetaminophen / oxycodone Percocet Unknown Drug Allergy Active meperidine Demerol Unknown Drug Allergy Active Environmental (uncoded) Unknown Allergy Active Dye Dye (uncoded) Unknown Allergy Active Results Component Value Reference Range Notes URINE DIP STICK Reviewed date:03/18/2024 04:34:15 PM Interpretation: Performing Lab: Notes/Report: SG 1.015 1.005 - 1.025 pH 6.0 5.0 - 9.0 GABY Negative Negative - NIT Negative Negative - PRO 15 Negative - Trace GLU Negative Negative - KET Negative Negative - UBG 0.2 0.1 - 1.8 MADAI Negative 0.2 - 1.3 BLD Positive Negative - CT lung screen follow up Reviewed date:03/13/2024 10:34:01 AM Interpretation: Performing Lab: Notes/Report: [address] [address] [address] Scan Report Signed Patient: Michelle Lyle MR#: [id number] 4 : 1955 Acct:[id number] Age/Sex: 68 / F ADM Date: 02/10/24 Loc: HO.CT Attending Dr: Prabha Cabral [employer] Ordering Physician: Prabha Cabral NP Date of Service: 02/10/24 Procedure(s): CT lung screen follow up Accession Number(s): [id number] cc: Milo Burgos MD; Prabha Cabral NP EXAMINATION: CT CHEST SCREENING CLINICAL INFORMATION: Nicotine dependence. Current smoker one pack per day x52 years. COMPARISON: CT lung screening 11/01/2023. TECHNIQUE: Multidetector volumetric CT imaging of the chest is performed without contrast using low dose technique. Additional 2D coronal and sagittal reformatted images and axial 3D maximum intensity projection (MIP) images are generated on the CT workstation. This CT examination was performed using dose optimization techniques as appropriate, variously including the following: *Automated exposure control *Adjustment of mA and/or kV according to patient size (this includes techniques or standardized protocols for targeted exams where dose is matched to indication/reason for exam; i.e. extremities or head) *Use of iterative reconstruction technique DLP: 33 mGy-cm FINDINGS: PULMONARY NODULES: Lung nodules are unchanged. A 6 mm left lower lobe ((5:442 compare prior 6:440) A 3 mm left lower lobe (5:356 compare prior 6:354) A 4 mm right lower lobe (5:266 compare prior 6:256) In the right upper lobe, there is a linear abnormality with thickening anteriorly. The thickened anterior component measures 6 x 4 mm (5:101) whereas previously this measured 4 x 3 mm (prior 6:110). No new pulmonary nodules are seen. LUNGS: Moderate emphysematous changes are present. There is a mild saber sheath trachea seen. Peribronchial thickening is noted. MEDIASTINUM: Heart size normal. Marked calcific atherosclerotic change present in the aorta and great vessels. Significant stenosis involving the origin of the left subclavian is suspected. CORONARY ARTERY CALCIFICATION: Severe PLEURA: There is no pleural effusion. No pleural mass or thickening. AXILLA: No lymphadenopathy. UPPER ABDOMEN: Unremarkable OSSEOUS STRUCTURES: Unremarkable. CT/CT lung screen follow up IMPRESSION: Growing right upper lobe nodule suspicious for malignancy. Other nodules are stable. ASSESSMENT: Lung-RADS category 4A: Suspicious RECOMMENDATION: Short interval 3 month follow up low dose CT chest. Dictated By: Deepak Mustafa MD Signed By: <Electronically signed by Deepak Mustafa MD in OV> 02/10/24 2255 DD/ 1545 TD/TT: Letter Carrier: JOSE RAFAEL [facility] [address] [facility] [place] [address] CT Scan Report Signed Patient: Mychal Lyle MR#: [id number] 4 : 1955 Acct:[id number] Age/Sex: 68 / F ADM Date: 02/10/24 Loc: HO.CT Attending Dr: Katina Cabral NP Ordering Physician: Prabha Cabral NP Date of Service: 02/10/24 Procedure(s): CT scar g screen follow up Accession Number(s): [id number] cc: Milo Burgos MD; Prabha Cabral NP EXAMINATION: CT CHEST SCREENING CLINICAL INFORMATION: Nicotine dependence. Current smoker one pack per day x52 years. COMPARISON: CT lung screening 11/01/2023. TECHNIQUE: Multidetector volume tric CT imaging of the chest is performed without contrast using low d ose technique. Additional 2D coronal and sagittal reformatted images a nd axial 3D maximum intensity projection (MIP) images are generated on the CT workstation. This CT examination was performed using dose optimization techniques as appropriate, various ly including the following: *Automated exposure control *Adjustment of mA an d/or kV according to patient size (this includes techniques or standa rdized protocols for targeted exams where dose is matched to indicatio n/reason for exam; i.e. extremities or head) *Use of iterative reconstruction technique DLP: 33 mGy-cm FINDINGS: PULMONARY NODULES: L jamaal nodules are unchanged. A 6 mm left lower lo be ((5:442 compare prior 6:440) A 3 mm left lower lo be (5:356 compare prior 6:354) A 4 mm right lower l obe (5:266 compare prior 6:256) In the right upper l obe, there is a linear abnormality with thickening anteriorly. The thic kened anterior component measures 6 x 4 mm (5:101) whereas previously t his measured 4 x 3 mm (prior 6:110). No new pulmonary nod ules are seen. LUNGS: Moderate emph ysematous changes are present. There is a mild saber sheath trachea seen. Peribronchial thickening is noted. MEDIASTINUM: Heart s ize normal. Marked calcific atherosclerotic change present in the aorta and great vessels. Significant stenosis involving the origin of the le ft subclavian is suspected. CORONARY ARTERY CALC IFICATION: Severe PLEURA: There is no pleural effusion. No pleural mass or thickening. AXILLA: No lymphadenopathy. UPPER ABDOMEN: Unremarkable OSSEOUS STRUCTURES: Unremarkable. C T/CT lung screen follow up IMPRESSION: Growing right upper lobe nodule suspicious for malignancy. Other nodules are stable. ASSESSMENT: Lung-RADS category 4 A: Suspicious RECOMMENDATION: Short interval 3 mon follow up low dose CT chest. Dictated By: Deepak Mustafa MD Signed By: <Electron ically signed by Deepak Mustafa MD in OV> 02/10/24 7105 DD/ 1545 TD/TT: Letter Carrier: JOSE RAFAEL CT lung screen follow up Reviewed date:11/01/2024 01:15:08 PM Interpretation: Performing Lab: Notes/Report: [place] [address] CT Scan Report Signed Patient: Michelle Lyle MR#: [id number] 4 : 1955 Acct:[id number] Age/Sex: 69 / F ADM Date: 07/22/24 Loc: HO.CT Attending Dr: Prabha Cabral NP Ordering Physician: Prabha Cabral NP Date of Service: 07/22/24 Procedure(s): CT lung screen follow up Accession Number(s): [id number] cc: Milo Burgos MD; Prabha Cabral NP EXAMINATION: CT LOW-DOSE SCREENING CHEST WITHOUT CONTRAST CLINICAL INFORMATION: Other nonspecific abnormal finding of lung field. The patient is a current smoker with a 50 pack-year history of smoking. COMPARISON: CT chest February 10, 2024: In the right upper lobe, there is a linear abnormality with thickening anteriorly. The thickened anterior component measures 6 x 4 mm (5:101) whereas previously this measured 4 x 3 mm (prior 6:110). As well as CT screening 11/01/2023 and x-ray chest March 14, 2013. TECHNIQUE: Multidetector volumetric CT imaging of the chest is performed on a Siemens SOMATOM Definition scanner without contrast using low dose technique. Additional 2D coronal and sagittal reformatted images and axial 3D maximum intensity projection (MIP) images are generated on the CT workstation. This CT examination was performed using dose optimization techniques as appropriate, variously including the following: *Automated exposure control. *Adjustment of mA and/or kV according to patient size (this includes techniques or standardized protocols for targeted exams where dose is matched to indication/reason for exam; i.e. extremities or head). *Use of iterative reconstruction technique. TOTAL EXAM DLP: 35 mGy-cm. CTDIvol: 0.98 mGy. FINDINGS: PULMONARY NODULES: There has been a continued increase in size in the right upper lobe nodule that now measures 10.5 x 6.4 mm (mean 8.5 mm) previously measuring 5.7 x 3.5 mm (mean 4.6 mm), (5:92 compare prior 5:101). This is in the transverse plane. In the cephalocaudad direction, this has increased in size more significantly, measuring 2.2 cm in the cephalocaudad dimension on today's exam whereas previously this measured at most 1.1 cm (see saved benson images). Other smaller pulmonary nodules are unchanged, the largest in the inferior-anterior left costophrenic sulcus measuring 6 mm (5:439 compare prior 5:442). LUNGS: Lungs bilaterally symmetrically expanded. There is mild emphysema and bronchial thickening. No effusion or pneumothorax. Central airways patent. MEDIASTINUM: No mediastinal, hilar or axillary adenopathy or free fluid collection. CORONARY ARTERY CALCIFICATION: Marked. THYROID GLAND: Unremarkable to the extent seen. CARDIOVASCULAR STRUCTURES: Aortic and heart size normal. Severe stenosis of the left subclavian artery origin. No pericardial effusion. CHEST WALL/AXILLA: Unremarkable. UPPER ABDOMEN: Included portions of the solid organs in the upper abdomen unremarkable on noncontrast imaging. OSSEOUS STRUCTURES: No suspicious focal findings. CT/CT lung screen follow up IMPRESSION: Unremarkable examination. ASSESSMENT: 1. Lung-RADS Category 4X: Suspicious. There is a nodule with additional features or imaging findings that increases the suspicion of malignancy. 2. Lung-RADS Category S: Negative. There are no clinically significant or potentially clinically significant findings not related to the lungs requiring urgent additional evaluation. RECOMMENDATION: Tissue sampling is recommended depending on the probability of malignancy and comorbidities. Electronically signed by: Deepak Mustafa MD 08/15/2024 02:58 PM EDT RP Dictated By: Deepak Mustafa MD Signed By: <Electronically signed by Deepak Mustafa MD in OV> 08/15/24 1458 DD/ 1526 TD/TT: 07/22/24 1542 Letter Carrier: [address] [address] [address] Scan Report Signed Patient: Mychal Lyle MR#: [id number] 4 : 1955 Acct:[id number] Age/Sex: 69 / F ADM Date: 07/22/24 Loc: HO.CT Attending Dr: Katina Cabral NP Ordering Physician: Prabha Cabral NP Date of Service: 07/22/24 Procedure(s): CT scar g screen follow up Accession Number(s): [id number] cc: Milo Burgos MD; Prabha Cabral NP EXAMINATION: CT LOW-DOSE SCREENIN G CHEST WITHOUT CONTRAST CLINICAL INFORMATION: Other nonspecific ab normal finding of lung field. The patient is a current smoker with a 50 pack-year history of smoking. COMPARISON: CT chest February 09 024: In the right upper lobe, there is a linear abnormality with thi ckening anteriorly. The thickened anterior component measures 6 x 4 mm (5:101) whereas previously this measured 4 x 3 mm (prior 6:110). As well as CT screen ing 11/01/2023 and x-ray chest March 14, 2013. TECHNIQUE: Multidetector volume tric CT imaging of the chest is performed on a Siemens SOMATOM Defi nition scanner without contrast using low dose technique. Additiona l 2D coronal and sagittal reformatted images and axial 3D maximum int ensity projection (MIP) images are generated on the CT workstation. This CT examination was performed using dose optimization techniques as appropriate, various ly including the following: *Automated exposure control. *Adjustment of mA an d/or kV according to patient size (this includes techniques or standa rdized protocols for targeted exams where dose is matched to indicatio n/reason for exam; i.e. extremities or head). *Use of iterative reconstruction technique. TOTAL EXAM DLP: 35 mGy-cm. CTDIvol: 0.98 mGy. FINDINGS: PULMONARY NODULES: T here has been a continued increase in size in the right upper lobe nod ule that now measures 10.5 x 6.4 mm (mean 8.5 mm) previously measuring 5.7 x 3.5 mm (mean 4.6 mm), (5:92 compare prior 5:101). This is in t he transverse plane. In the cephalocaudad direction, this has increased in size more significantly, measuring 2.2 cm in the cephalocau dad dimension on today's exam whereas previously this measured at mos t 1.1 cm (see saved benson images). Other smaller pulmon jewels nodules are unchanged, the largest in the inferior-anterior le ft costophrenic sulcus measuring 6 mm (5:439 compare prior 5:442). LUNGS: Lungs bilater ally symmetrically expanded. There is mild emphysema and bronch ial thickening. No effusion or pneumothorax. Central airways patent. MEDIASTINUM: No medi astinal, hilar or axillary adenopathy or free fluid collection. CORONARY ARTERY CALC IFICATION: Marked. THYROID GLAND: Unrem arkable to the extent seen. CARDIOVASCULAR STRUC TURES: Aortic and heart size normal. Severe stenosis of the left subclavian artery origin. No pericardial effusion. CHEST WALL/AXILLA: Unremarkable. UPPER ABDOMEN: Inclu ded portions of the solid organs in the upper abdomen unremarkable on noncontrast imaging. OSSEOUS STRUCTURES: No suspicious focal findings. C T/CT lung screen follow up IMPRESSION: Unremarkable examination. ASSESSMENT: 1. Lung-RADS Categor y 4X: Suspicious. There is a nodule with additional features or imaging findings that increases the suspicion of malignancy. 2. Lung-RADS Categor y S: Negative. There are no clinically significant or potentially clini daniel significant findings not related to the lungs requiring urgent add itional evaluation. RECOMMENDATION: Tissue sampling is r ecommended depending on the probability of malignancy and comorbidities. Electronically luana d by: Deepak Mustafa MD 08/15/2024 02:58 PM EDT RP Dictated By: Deepak Mustafa MD Signed By: <Electron ically signed by Deepak Mustafa MD in OV> 08/15/24 1458 DD/ 1526 TD/TT: 07/22/24 1542 Letter Carrier: JOSE RAFAEL Reason For Referral Reason Consult and Treat Enlarging Right Lung Tumor Diagnosis 1 Lung tumor (D49.1) Referral Organization Milo Burgos III, MD Referring Provider First Name Milo Referring Provider Last Name Burgos Referring Provider Speciality Internal M edicine Referred Organization [facility] Referred Provider Jonathan Deal Referred Address [address] [place], [place] [address]MYCHAL,[id number], Referred Provider Specialty Thoracic Rachel ruth General Notes Dixie Magallanes MA 09/02/2024 11:00:46 AM > ref/demo/progress note/lung screening reports x 2 and Pet scan faxed pt contacted and mailed appt info Referral Priority Routine Referral Appointment Date 09/09/2024 Medications Medication SIG (Take, Route, Frequency, Duration) Notes Start Date End Date Status Albuterol Sulfate HFA 108 (90 Base) MCG/ACT two puffs Inhalation every 4 hrs for 30 days Active ProAir HFA 108 (90 Base) MCG/ACT 1 puff as needed Inhalation every 4 hrs 07/11/2020 Active Betamethasone Dipropionate 0.05 % 1 application Externally apply two times a day 01/08/2024 Active Calcium 500 MG 1 tablet with meals Orally Twice a day Active Alendronate Sodium 70 MG 1 tablet 30 min utes before the first food, beverage or medicine of the day with plain water Orally once a week 09/20/2022 Active Ibuprofen 200 MG 1 tablet with food o r milk as needed Orally Three times a day Active Vitamin D 25 MCG (1000 UT) 1 tablet Oral ly Once a day 01/30/2023 Active Advair Diskus 100-50 MCG/ACT 1 puff Inhalation Twice a day 07/13/2024 Active Lidocaine 5 % 1 patch remove after 12 hours Externally Once a day 09/27/2023 Active Asmanex HFA 200 MCG/ACT 2 puffs Inhalati on Twice a day 07/13/2024 Active Immunizations Vaccine Route Administration Date Status Comme nts Influenza, quad IM Intramuscular 11/15/2020 Administered Influenza no Preserv 3 and > IM Intramuscular 09/25/2021 Administered Influenza, quad IM Intramuscular 10/24/2022 Administered Influenza Vaccine Afluria IM Intramuscular 08/17/2024 Admi nistered Social History Tobacco Use: Social History Observation Description Date Details (start date - stop date) Current Smoker NA - NA Sex Assigned At : Social History Observation Description Sex Assigned At Female Tobacco Use/Smoking Question Answer Notes Patient is a current smoker How often do you smoke cigarettes? every day How many cigarettes a day do you smoke? 5 or les s How soon after you wake up d o you smoke your first cigarette? after 60 minutes Are you interested in quitting? Not ready to shiloh t Additional Findings: Tobacco User Light cigarett e smoker ((1-9 cigs/day) Alcohol Screen Question Answer Notes Did you have a drink containing alcohol in the p ast year? No Points 0 Interpretation Negative Problems Problem Type SNOMED Code ICD Code Onset Dates Problem Status W/U Status Risk Notes Problem 07508312 Chronic cough (R05) Active confirmed We have continued to support her efforts to cut down on her cigarette use. We have discussed various strategies for smoking cessation. Problem 9631955 Former smoker (Z87.891) Active confirmed She recently stopped smoking. Problem 243883246 Underweight (R63.6) Active confirmed She has lost 5 pounds since her last visit. Her body mass index is 19.46. We have reviewed her diet and nutrition today. I recommended the use of supplements. I recommend that she consumes 3 meals per day. We reviewed the eelements of a nutritious diet. 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 She was referred to orthopedicsurg [facility]. 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 Problem COPD - Chronic obstructive pulmonary disease (38576642) Chronic obstructive pulmonary disease, unspecified COPD type (J44.9) Active confirmed She has resumed smoking. Her shortness of breath is worsening. .She is short of breath with prolonged exertions. She was comfortable breathing room air today at rest. We discussed the upcoming CT scan. Problem 79663101 Degenerative disc disease, cervical (M50.30) Active confirmed On MRI of the neck was done in 2007. This showed a disc protrusion at C5-6. Problem 73832667 Tobacco dependence (F17.200) Active confirmed I strongly recommended smoking cessation. We discussed strategies for smoking cessation. Problem 226436249 Environmental allergies (Z91.09) Active confirmed She has allergies to environmental agents and animals. She is beginning to have some allergies and pollen season. We discussed the management of this at length. She is taking the prednisone along with the Flonase and antihistamine. Problem Primary osteoarthritis (631708011) Primary osteoarthritis involving multiple joints (M15.0) Active confirmed The x-ray of the right hip shows mild degenerative changes. She has arthritis in her lumbar spine as well. These are being treated symptomaticall y. She has an appointment in 48 hours to have the right hip replaced. Problem 78775436 Sinusitis chronic, frontal (J32.1) Active confirmed She was counseled about smoking cessation. She will finish the antibiotic and use an afvd-kqb-vwrws er antitussive. Problem 05492680 Hyperlipidemia, unspecified hyperlipidemia type (E78.5) Active confirmed Comprehensive blood work including a lipid profile has been ordered prior to her next visit. No change in her therapy was made today. Problem Compression fracture of fifth lumbar vertebra (S32.050A) Active confirmed She has occasional pain in this area but it is only 1 out of 10. She continues on her treatment for osteoporosis. Problem 27663026 Eczema, unspecified type (L30.9) Active confirmed She has medication to use for the eczema, which I will refill as needed. Problem 42836159 Acute bronchitis, unspecified organism (J20.9) Active confirmed The acute bronchitis has resolved. The chronic bronchitis remains. She derive great benefit from the antibiotic and prednisone. She now has a maintenance inhaler. Problem 411002847 Age related osteoporosis, unspecified pathological fracture presence (M81.0) Active confirmed She will continue on the alendronate once a week and the vitamin D and 1000 units daily with 500 mg of calcium twice a day. Problem 90358350260081994 Bilateral carpal tunnel syndrome (G56.03) Active confirmed This was diagnosed in the past and is symptomatic occasionally. She didn't wish to pursue further treatment. Problem Compression fracture of thoracic vertebra (disorder) (0271518616853) Compression fracture of body of thoracic vertebra (S22.000A) Active confirmed Problem 6860952967177447 Arthritis of right hip (M16.11) Active confirmed There is mild to moderate pain in the right hip with prolonged walking. She'll continue to see the orthopedist. She will likely decide to have the surgery before that she addresses the right shoulder pain. Problem 724811562 Mass of upper lobe of right lung (R91.8) Active confirmed There is no enlarging mass in the upper lobe with the right lung seen on a recent CT scan of the chest. PET CT scan has been ordered. If that is positive she will be seen by thoracic surgery and have pulmonary function test done. Problem 190457158 Solid nodule of lung 6 mm to 8 mm in diameter (R91.1) Active confirmed A screening CT scan of the chest done recently showed multiple pulmonary nodules. There was a 6 mm nodule in the left lower lobe. A CT scan in 6 months, has been recommended and arranged. Vital Signs Heart Rate 96 /min 08/17/2024 Temperature 99.1 degrees Fahrenheit 08/17/2024 Blood pressure diastolic 117 mm Hg 06/10/2024 Height 61 in 08/17/2024 Blood pressure systolic 140 mm Hg 06/10/2024 Weight 117 lbs 08/17/2024 BMI 22.1 kg/m2 08/17/2024 Encounters Encounter Location Date Provider Diagnosis Milo Burgos III, MD [address] [place] [address] [place] [phone] 03/18/2024 Milo Burgos Chronic obstructive pulmonary disease, unspecified COPD type J44.9 ; Environmental allergies Z91.09 ; Chronic cough R05 ; Tobacco dependence F17.200 ; Degenerative disc disease, cervical M50.30 ; Bilateral carpal tunnel syndrome G56.03 ; Hyperlipidemia, unspecified hyperlipidemia type E78.5 ; Age related osteoporosis, unspecified pathological fracture presence M81.0 ; Compression fracture of fifth lumbar vertebra S32.050A and Solid nodule of lung 6 mm to 8 mm in diameter R91.1 Milo Burgos III, MD [address] [place] [address] [place] [address] 04/06/2024 Milo Burgos Chronic obstructive pulmonary disease, unspecified COPD type J44.9 ; Primary osteoarthritis involving multiple joints M15.0 ; Environmental allergies Z91.09 and Former smoker Z87.891 Milo Burgos III, MD [address] [place] [address] [place] [address] 06/10/2024 Milo Burgos Chronic obstructive pulmonary disease, unspecified COPD type J44.9 ; Tobacco dependence F17.200 ; Primary osteoarthritis involving multiple joints M15.0 ; Chronic cough R05 ; Arthritis of right hip M16.11 ; Environmental allergies Z91.09 and Age related osteoporosis, unspecified pathological fracture presence M81.0 Milo Burgos III, MD [address] [place] [address] [place] [address] 07/06/2024 Milo Burgos Acute bronchitis, unspecified organism J20.9 ; Chronic obstructive pulmonary disease, unspecified COPD type J44.9 ; Primary osteoarthritis involving multiple joints M15.0 ; Environmental allergies Z91.09 ; Tobacco dependence F17.200 and Arthritis of right hip M16.11 Milo Burgos III, MD [address] [place] [address] [place] [address] 07/09/2024 Milo Burgos Acute bronchitis, unspecified organism J20.9 ; Tobacco dependence F17.200 ; Compression fracture of fifth lumbar vertebra S32.050A ; Environmental allergies Z91.09 and Chronic obstructive pulmonary disease, unspecified COPD type J44.9 Milo Burgos III, MD [address] [place] [address] [place] [address] 08/17/2024 Milo Burgos Acute bronchitis, unspecified organism J20.9 ; Encounter for immunization Z23 ; Mass of upper lobe of right lung R91.8 ; Primary osteoarthritis involving multiple joints M15.0 ; Chronic obstructive pulmonary disease, unspecified COPD type J44.9 ; Environmental allergies Z91.09 ; Chronic cough R05 ; Eczema, unspecified type L30.9 ; Tobacco dependence F17.200 ; Idiopathic aseptic necrosis of right femur M87.051 ; Idiopathic aseptic necrosis of left femur M87.052 and Degenerative disc disease, cervical M50.30 Milo Burgos III, MD [address] [place] [address] [place] [address] 01/08/2024 Milo Burgos III, MD [address] [place] [address] [place] [address] 03/02/2024 Milo Burgos III, MD [address] [place] [address] [place] [address] 03/11/2024 Milo Burgos III, MD [address] [place] [address] [place] [address] 03/12/2024 Milo Burgos III, MD [address] [facility] [place] [address] 05/14/2024 Milo Burgos III, MD [address] [facility] [place] [address] 07/13/2024 Milo Burgos III, MD [address] [place] [address] [place] [address] 07/13/2024 Milo Burgos III, MD [address] [facility] [place] [address] 08/20/2024 Milo Burgos III, MD [address] [facility] [place] [address] 08/27/2024 Milo Burgos III, MD [address] [facility] [place] [address] 09/02/2024 Milo Burgos III, MD [address] [place] [address] [place] [address] 10/12/2024 Milo Burgos III, MD [address] [place] [address] [place] [address] 11/12/2024 Milo Burgos III, MD [address] [place] [address] [place] [address] 11/12/2024 Milo Burgos Assessments Encounter Date Diagnosis (ICD Code) Assessment Notes Treat ment Notes Treatment Clinical Notes 03/18/2024 Chronic obstructive pulmonary disease, unspecified COPD type (ICD-10 - J44.9) She continues to smoke cigarettes and cough frequently. It is a nonproductive cough. She is short of breath with prolonged exertion but not at rest. No change in her regimen was necessary today. She will continue on her current antitussive. Her examination showed rhonchi but no wheezes. She was comfortable breathing room air today at rest. We discussed smoking cessation at length. 03/18/2024 Environmental allergies (ICD-10 - Z91.09) She has allergies to environmental agents and animals. She is beginning to have some allergies and pollen season. We discussed the management of this at length. She is taking the prednisone along with the Flonase and antihistamine. 04/06/2024 Chronic obstructive pulmonary disease, unspecified COPD type (ICD-10 - J44.9) She has been abstinent from smoking recently .She is short of breath with prolonged exertions. She was comfortable breathing room air today at rest. We discussed repeating a CT scan. 04/06/2024 Primary osteoarthritis involving multiple joints (ICD-10 - M15.0) The x-ray of the right hip shows mild degenerative changes. She has arthritis in her lumbar spine as well. These are being treated symptomatically. She has an appointment in 48 hours to have the right hip replaced. 06/10/2024 Chronic obstructive pulmonary disease, unspecified COPD type (ICD-10 - J44.9) She has resumed smoking. Her shortness of breath is worsening. .She is short of breath with prolonged exertions. She was comfortable breathing room air today at rest. We discussed the upcoming CT scan. 06/10/2024 Tobacco dependence (ICD-10 - F17.200) I strongly recommended smoking cessation. We discussed strategies for smoking cessation. 07/06/2024 Chronic obstructive pulmonary disease, unspecified COPD type (ICD-10 - J44.9) She has resumed smoking. Her shortness of breath is worsening. .She is short of breath with prolonged exertions. She was comfortable breathing room air today at rest. We discussed the upcoming CT scan. 07/06/2024 Acute bronchitis, unspecified organism (ICD-10 - J20.9) She will take prednisone 20 mg daily for 7 days. I have prescribed a azithromycin. She will come to the office at once if her symptoms worsen. A followup visit in 7 days was arranged. 07/09/2024 Tobacco dependence (ICD-10 - F17.200) I strongly recommended smoking cessation. We discussed strategies for smoking cessation. 07/09/2024 Acute bronchitis, unspecified organism (ICD-10 - J20.9) She will take prednisone 20 mg daily for 7 days. I have prescribed a azithromycin. She will come to the office at once if her symptoms worsen. A followup visit in 7 days was arranged. 08/17/2024 Encounter for immunization (ICD-10 - Z23) She received the influenza vaccine today. 08/17/2024 Acute bronchitis, unspecified organism (ICD-10 - J20.9) The acute bronchitis has resolved. The chronic bronchitis remains. She derive great benefit from the antibiotic and prednisone. She now has a maintenance inhaler. 03/18/2024 Chronic cough (ICD-1 0 - R05) We have continued to support her efforts to cut down on her cigarette use. We have discussed various strategies for smoking cessation. 04/06/2024 Environmental allergies (ICD-10 - Z91.09) She has allergies to environmental agents and animals. She is beginning to have some allergies and pollen season. We discussed the management of this at length. She is taking the prednisone along with the Flonase and antihistamine. 06/10/2024 Primary osteoarthritis involving multiple joints (ICD-10 - M15.0) The x-ray of the right hip shows mild degenerative changes. She has arthritis in her lumbar spine as well. These are being treated symptomatically. She has an appointment in 48 hours to have the right hip replaced. 07/06/2024 Primary osteoarthritis involving multiple joints (ICD-10 - M15.0) The x-ray of the right hip shows mild degenerative changes. She has arthritis in her lumbar spine as well. These are being treated symptomatically. She has an appointment in 48 hours to have the right hip replaced. 07/09/2024 Compression fracture of fifth lumbar vertebra (ICD-10 - S32.050A) She has occasional pain in this area but it is only 1 out of 10. She continues on her treatment for osteoporosis. 08/17/2024 Mass of upper lobe o f right lung (ICD-10 - R91.8) There is no enlarging mass in the upper lobe with the right lung seen on a recent CT scan of the chest. PET CT scan has been ordered. If that is positive she will be seen by thoracic surgery and have pulmonary function test done. 03/18/2024 Tobacco dependence (ICD-10 - F17.200) I strongly recommended smoking cessation. We discussed strategies for smoking cessation. 04/06/2024 Former smoker (ICD-1 0 - Z87.891) She recently stopped smoking. 06/10/2024 Chronic cough (ICD-1 0 - R05) We have continued to support her efforts to cut down on her cigarette use. We have discussed various strategies for smoking cessation. 07/06/2024 Environmental allergies (ICD-10 - Z91.09) She has allergies to environmental agents and animals. She is beginning to have some allergies and pollen season. We discussed the management of this at length. She is taking the prednisone along with the Flonase and antihistamine. 07/09/2024 Environmental allergies (ICD-10 - Z91.09) She has allergies to environmental agents and animals. She is beginning to have some allergies and pollen season. We discussed the management of this at length. She is taking the prednisone along with the Flonase and antihistamine. 08/17/2024 Primary osteoarthritis involving multiple joints (ICD-10 - M15.0) The x-ray of the right hip shows mild degenerative changes. She has arthritis in her lumbar spine as well. These are being treated symptomatically. She has an appointment in 48 hours to have the right hip replaced. 03/18/2024 Degenerative disc disease, cervical (ICD-10 - M50.30) On MRI of the neck was done in 2007. This showed a disc protrusion at C5-6. 06/10/2024 Arthritis of right hip (ICD-10 - M16.11) There is mild to moderate pain in the right hip with prolonged walking. She'll continue to see the orthopedist. She will likely decide to have the surgery before that she addresses the right shoulder pain. 07/06/2024 Tobacco dependence (ICD-10 - F17.200) I strongly recommended smoking cessation. We discussed strategies for smoking cessation. 07/09/2024 Chronic obstructive pulmonary disease, unspecified COPD type (ICD-10 - J44.9) She has resumed smoking. Her shortness of breath is worsening. .She is short of breath with prolonged exertions. She was comfortable breathing room air today at rest. We discussed the upcoming CT scan. 08/17/2024 Chronic obstructive pulmonary disease, unspecified COPD type (ICD-10 - J44.9) She has resumed smoking. Her shortness of breath is worsening. .She is short of breath with prolonged exertions. She was comfortable breathing room air today at rest. We discussed the upcoming CT scan. 03/18/2024 Bilateral carpal tunnel syndrome (ICD-10 - G56.03) This was diagnosed in the past and is symptomatic occasionally. She didn't wish to pursue further treatment. 06/10/2024 Environmental allergies (ICD-10 - Z91.09) She has allergies to environmental agents and animals. She is beginning to have some allergies and pollen season. We discussed the management of this at length. She is taking the prednisone along with the Flonase and antihistamine. 07/06/2024 Arthritis of right hip (ICD-10 - M16.11) There is mild to moderate pain in the right hip with prolonged walking. She'll continue to see the orthopedist. She will likely decide to have the surgery before that she addresses the right shoulder pain. 08/17/2024 Environmental allergies (ICD-10 - Z91.09) She has allergies to environmental agents and animals. She is beginning to have some allergies and pollen season. We discussed the management of this at length. She is taking the prednisone along with the Flonase and antihistamine. 03/18/2024 Hyperlipidemia, unspecified hyperlipidemia type (ICD-10 - E78.5) Comprehensive blood work including a lipid profile has been ordered prior to her next visit. No change in her therapy was made today. 06/10/2024 Age related osteoporosis, unspecified pathological fracture presence (ICD-10 - M81.0) She will continue on the alendronate once a week and the vitamin D and 1000 units daily with 500 mg of calcium twice a day. 08/17/2024 Chronic cough (ICD-1 0 - R05) We have continued to support her efforts to cut down on her cigarette use. We have discussed various strategies for smoking cessation. 03/18/2024 Age related osteoporosis, unspecified pathological fracture presence (ICD-10 - M81.0) She will continue on the alendronate once a week and the vitamin D and 1000 units daily with 500 mg of calcium twice a day. 08/17/2024 Eczema, unspecified type (ICD-10 - L30.9) She has medication to use for the eczema, which I will refill as needed. 03/18/2024 Compression fracture of fifth lumbar vertebra (ICD-10 - S32.050A) She has occasional pain in this area but it is only 1 out of 10. She continues on her treatment for osteoporosis. 08/17/2024 Tobacco dependence (ICD-10 - F17.200) I strongly recommended smoking cessation. We discussed strategies for smoking cessation. 03/18/2024 Solid nodule of lung 6 mm to 8 mm in diameter (ICD-10 - R91.1) A screening CT scan of the chest done recently showed multiple pulmonary nodules. There was a 6 mm nodule in the left lower lobe. A CT scan in 6 months, has been recommended and arranged. 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 She was referred to orthopedicsurgeons. 08/17/2024 Idiopathic aseptic necrosis of left femur (ICD-10 - M87.052) She was referred to a new orthopedic surgeon. 08/17/2024 Degenerative disc disease, cervical (ICD-10 - M50.30) On MRI of the neck was done in 2007. This showed a disc protrusion at C5-6. Plan Of Treatment Pending Test Test Name Order Date PETCT SKULL TO THIGH 08/17/2024 Next Appt Details Provider Name:Milo Muñozrne, 03/22/2025 03:00:00 PM, [address] [place] [address] [address]IB[place], [place], [address], Insurance Providers Payer Name Payer Address Payer Phone Subscriber Number Group Number Insured Name Patient Relationship to Insured Coverage Start Date Coverage End Date MEDICARE NGS [address] [place] [address] [id number] Michelle Lyle Self - patient is the insured [facility] [address] [place], [place] [id number] Michelle Lyle Self - patient is the insured Medical (General) History Medical History History ICD Code Eczema, unspecified type L30.9 avascular necrosis right hip, Instrum copd environmental allergies tobacco dependence underweight C5-C6 disc protrusion 2007 fracture right wrist in fall 2012 osteoarthritis 30% T12 compression fracture Mild canal stenosis at L1-L2 6 mm left lower lobe nodule Surgical History Surgery Date(Month/Year) bilateral carpal tunnel syndrome injecti on 2012 dental extractions 2013 impacted fractured distal right radius 2 018 Cortical decompression right hip, avascular necrosis, [facility] 2007
--- OUTSIDE RECORDS SUMMARY | 2024-12-07 19:16 | XMS_ITS ---
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 Name Role Phone Milo Burgos Primary Care Provider REASON FOR VISIT Needs call back from Social History Sex Assigned At : Social History Observation Description Sex Assigned At Female Encounters Encounter Location Date Provider Diagnosis Milo Burgos III, MD [address] [place] [address] [place] [address] 11/12/2024 Milo Burgos Plan Of Treatment Next Appt Details Provider Name:Milo Burgos, 03/22/2025 03:00:00 PM, [address] [place] [address] [place], [address], Progress Notes * Michelle AGARWALDOB:1955 (69 yo F)Acc No.[id number]:11/12/2024 Patient:?Michelel AGARWAL :1955???Age:69 Y???Sex:Female Address:[address] [place], [address] * true * Date:? Generated for Printi ng/Faxing/eTransmitting on:?12/07/2024 07:15 PM EST
--- OUTSIDE RECORDS SUMMARY | 2024-12-07 19:16 | XMS_ITS ---
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 Name Role Phone Milo Burgos Primary Care Provider REASON FOR VISIT Message Social History Sex Assigned At : Social History Observation Description Sex Assigned At Female Encounters Encounter Location Date Provider Diagnosis Milo Burgos III, MD [address] [place] [address] [place] [address] 10/12/2024 Milo Burgos Plan Of Treatment Next Appt Details Provider Name:Milo Burgos, 03/22/2025 03:00:00 PM, [address] [place] [address] [place], [address], Progress Notes * Michelle AGARWALDOB:1955 (69 yo F)Acc No.[id number]:10/12/2024 Patient:?Michelle AGARWAL :1955???Age:69 Y???Sex:Female Address:[address] [place], [address] * true * Date:? Generated for Carlosi meliton/Faotiliag/eTransmitting on:?12/07/2024 07:15 PM EST
== END 2024-12-07 15:21 | disposition home or self-care (01) ==
LOC: HO.MAMMO 15:20
PROVIDERS: PCP Internal Medicine Medical Oncology; Visit Provider Internal Medicine Medical Oncology
DX: Z12.31 Encounter for screening mammogram for malignant neoplasm of breast (principal)
CPT/HCPCS: 77063; 77067

== ENCOUNTER → 2024-12-07 15:45 | Outpatient (BNV) | payer MEDICARE, SELFPAY | PROVIDERS: PCP Internal Medicine Medical Oncology; Visit Provider Internal Medicine | DX: Z12.31 Encounter for screening mammogram for malignant neoplasm of breast (principal) | CPT/HCPCS: 77063; 77067 ==